=== PATIENT | male | born 1990 ===

== ENCOUNTER 2019-12-24 11:15 | Outpatient (CLI) | payer OTHER | END 2019-12-24 11:20 | disposition home or self-care (01) | LOC: LAB 11:15 | DX: Z20.6 Contact with and (suspected) exposure to human immunodeficiency virus [HIV] (principal); Z41.8 Encounter for other procedures for purposes other than remedying health state; A56.01 Chlamydial cystitis and urethritis; A54.01 Gonococcal cystitis and urethritis, unspecified; A51.0 Primary genital syphilis ==